=== PATIENT | male | born 1990 | race Caucasian/White ===

== ENCOUNTER 2020-10-24 12:03 | Emergency (ER) | payer BC, OTHER ==
--- NOTE | 2020-10-24 12:19 | EDM.PDOC ---
ED HPI GENERAL MEDICAL PROBLEM - General Chief Complaint: Lower Extremity Injury/Pain Stated Complaint: TWISTED KNEE;LEFT Time Seen by Provider: 10/24/20 12:10 Source of Information: Reports: Patient History Limitations: Reports: No Limitations - History of Present Illness INITIAL COMMENTS - FREE TEXT/NARRATIVE: Patient states he was at work about 20 minutes ago when he was pulling himself up and had his left foot planted when he turned with his hips and felt a pop at that time he felt a sudden intense pain that he describes as a 12 out of 10 inside his knee and he could not fully extend his knee afterwards. He states this is been going on and off for the last several months he has noticed increased popping and grinding in the knee and its numbness a few times before and he was able to get it unlocked. He denies any past injuries Quality: Reports: Stabbing, Throbbing Severity: Severe Improves with: Reports: None Worsens with: Reports: Movement Associated Symptoms: Reports: No Other Symptoms Left Knee Pain Score (Numeric/FACES): 10 - Related Data Allergies Allergy/AdvReac Type Severity Reaction Status Date / Time No Known Allergies Allergy Verified 10/24/20 12:20 Home Meds: Home Meds . [No Known Home Meds] 10/24/20 [History] Review of Systems - Review of Systems Review Of Systems: See Below Constitutional: Reports: No Symptoms Cardiovascular: Reports: No Symptoms GI/Abdominal: Reports: No Symptoms Genitourinary: Reports: No Symptoms Musculoskeletal: Reports: Joint Pain, Other Skin: Reports: No Symptoms Neurological: Reports: No Symptoms Psychiatric: Reports: No Symptoms ED EXAM, GENERAL - Physical Exam Exam: See Below Exam Limited By: No Limitations General Appearance: Alert, WD/WN, No Apparent Distress, Other (Mild noted discomfort) Back Exam: Normal Inspection, Full Range of Motion Extremities: Normal Inspection, No Pedal Edema, Normal Capillary Refill, Other (Exam to the left knee patient is neurovascularly intact there is no noted edema effusion positive tenderness palpation bilateral joint line tenderness unable to perform anterior posterior drawers V//V patient states he is hurting too bad to check for patellar tracking). No: Normal Range of Motion, Non-Tender Neurological: Alert, Oriented, CN II-XII Intact, Normal Cognition, No Motor/Sen chandrika Deficits Psychiatric: Normal Affect, Normal Mood Skin Exam: Warm, Intact, Normal Color, No Rash Course - Vital Signs Text/Narrative:: 3 view knee series we will place patient in immobilizer with crutches I believe this is due to a meniscal injury patient will need to follow-up with Ortho or primary care rajinder Grayson [address] Singh have the patient call make an appointment at the clinic [phone] Last Recorded V/S: Last Vital Signs Temp 36.4 C 10/24/20 12:08 Pulse 88 10/24/20 12:08 Resp 20 10/24/20 12:08 BP 124/89 10/24/20 12:08 Pulse Ox 98 10/24/20 12:08 - Orders/Labs/Meds Orders: Active Orders 24 hr Category Date Time Status Knee 3V Lt [CR] Stat Exams 10/24/20 12:12 Taken Meds: Medications Discontinued Medications Generic Name Dose Route Start Last Admin Trade Name Freq PRN Reason Stop Dose Admin Ketorolac Tromethamine 30 mg 10/24/20 12:13 10/24/20 12:30 Ketorolac 30 Mg/Ml Sdv IM 10/24/20 12:14 30 mg ONETIME ONE Administration Departure - Departure Time of Disposition: 13:10 Disposition: Home, Self-Care 01 Condition: Good Clinical Impression: Acute pain of left knee - Discharge Information Forms: ED Department Discharge Sepsis Event Note (ED) - Focused Exam Vital Signs: Vital Signs Temp Pulse Resp BP Pulse Ox 10/24/20 12:08 36.4 C 88 20 124/89 98 - Problem List & Annotations (1) Acute pain of left knee SNOMED Code(s): 3158450178, 999972905, 5893215517 Code(s): M25.562 - PAIN IN LEFT KNEE Status: Acute Current Visit: Yes - My Orders Last 24 Hours: My Active Orders 10/24/20 12:12 Knee 3V Lt [CR] Stat - Assessment/Plan Last 24 Hours: My Active Orders 10/24/20 12:12 Knee 3V Lt [CR] Stat
[2020-10-24] MEDS: Ketorolac 30 MG/ML SDV IM ONE (12:30)
--- NOTE | 2020-10-24 13:36 | CR ---
[id number] RAD/RAD Knee Left 3V EXAM: RAD Knee Left 3V INDICATION: TRAUMA. PATIENT UNABLE TO STRAIGHTEN KNEE. COMPARISON: None. DISCUSSION: No fracture, joint effusion, dislocation or other osseous abnormality. IMPRESSION: 1. Negative exam. Jb Collins MD 10/24/20 [id number] Thank you for allowing us to participate in the care of your patient.
== END 2020-10-24 13:41 | disposition home or self-care (01) ==
LOC: VM.ED 12:03
DX: M25.562 Pain in left knee (principal); X50.1XXA Overexertion from prolonged static or awkward postures, initial encounter
CPT/HCPCS: 73562-LT; 96372; 99283; 99283-25; J1885

== ENCOUNTER 2021-12-06 16:44 | Emergency (ER) | payer BC, MEDICAID, OTHER ==
[2021-12-06] MEDS ORDERED: Orphenadrine 60 MG/2 ML Inj IM ONE (18:29)
[2021-12-06] MEDS ORDERED: Ketorolac 30 MG/ML SDV IM ONE (18:29)
[2021-12-06] MEDS ORDERED: Take Home: Naproxen 500 MG Tab, 4 Tab Pack PO ONE (19:22)
[2021-12-06] MEDS ORDERED: Take Home: Cyclobenzaprine 10 MG Tab, 4 Tab Pack PO ONE (19:22)
== END 2021-12-06 19:50 | disposition home or self-care (01) ==
LOC: VM.ED 16:44
DX: M54.50 Low back pain, unspecified (principal); F17.210 Nicotine dependence, cigarettes, uncomplicated
CPT/HCPCS: 96372; 99283; A9270-GY; J1885; J2360

== ENCOUNTER 2023-04-07 00:52 | Emergency (ER) | payer MEDICAID ==
[2023-04-07 01:16] VITALS: BP 137/67; PULSE 87
== END 2023-04-07 01:23 | disposition home or self-care (01) ==
LOC: VM.ED 00:52
DX: R04.0 Epistaxis (principal)
CPT/HCPCS: 30901; 30905; 99283